=== PATIENT | male | born 1995 | race Caucasian/White ===

== ENCOUNTER 2022-01-15 19:36 | Emergency (ER) | payer SELFPAY ==
[2022-01-15] MEDS ORDERED: LORazepam 2 MG/ML SDV IVPUSH ONE ×3 (20:03→22:01)
[2022-01-15] MEDS ORDERED: Sodium Chloride 0.9% 1,000 ML IV ONE ×2 (20:03→21:33)
[2022-01-15] MEDS ORDERED: Ondansetron 4 MG/2 ML SDV IVPUSH ONE (20:57)
== END 2022-01-15 23:12 | disposition home or self-care (01) ==
LOC: JD.ED 19:36
DX: F13.239 Sedative, hypnotic or anxiolytic dependence with withdrawal, unspecified (principal)
CPT/HCPCS: 36415; 80053; 80306; 80307; 81001; 83735; 85025; 93005; 96374; 96375; 96376; 99284; J2060; J2405; J7030